=== PATIENT | female | born 1950 | race Caucasian/White ===

== ENCOUNTER 2019-05-23 12:20 | Emergency (ER) | payer OTHER ==
[2019-05-23 13:25] LABS: Absolute Lymphocytes (CBC) 1.4 K/uL (0.7-4.9); Basophils % 0.4 % (0-1.3); Hematocrit 34.7 % (36.0-45.0); Lymphocytes % 10.8 % (15.3-44.8); MPV 8.1 fL (7.6-11.3); RBC Red Blood Cell Count 4.03 M/uL (3.86-4.86)
[2019-05-23] MEDS ORDERED: MORPHINE 2 MG/ML SYR ONE (13:35)
[2019-05-23] MEDS ORDERED: ONDANSETRON 4 MG/2 ML VIAL ONE (13:35)
[2019-05-23 13:45] LABS: ALT/SGPT 25 U/L (12-78); AST/SGOT 18 U/L (15-37); Albumin 3.4 g/dL (3.4-5.0); Alkaline Phosphatase 123 U/L (45-117); BUN Blood Urea Nitrogen 26 mg/dL (7-18); Bicarbonate 30 mmol/L (21-32); Bilirubin Direct < 0.1 mg/dL (0-0.2); Bilirubin Total 0.3 mg/dL (0.2-1.0); Glucose Level 96 mg/dL (74-106); Lipase 92 U/L (73-393); Potassium 4.6 mmol/L (3.5-5.1); Protein, Total 7.4 g/dL (6.4-8.2); Sodium Level 133 mmol/L (136-145)
--- NOTE | 2019-05-23 14:07 | RAD REPORT ---
EXAM DESCRIPTION: CT - Chest Abdomen Pelvis W Cont - 05/23/2019 1:58 pm CLINICAL HISTORY: Chest and abdomen pain. right sided chest pain, right sided abdominal pain COMPARISON: No comparisons TECHNIQUE: Approximately 100 mL nonionic IV contrast was administered to the patient. All CT scans are performed using dose optimization technique as appropriate and may include automated exposure control or mA/KV adjustment according to patient size. FINDINGS: The lungs are clear.Cholecystectomy clips.No pleural or pericardial effusion.No intrathora cic adenopathy. The liver, spleen, pancreas, adrenal glands and kidneys are within normal limits. No bowel obstruction, free air, free fluid or abscess. Normal appendix. Significant diverticulosis is present involving the sigmoid colon. There is wall thickening and inflammatory changes present. No p eridiverticular abscess. No pathologic lymphadenopathy in the abdomen or pelvis. No worrisome osseous finding. IMPRESSION: Moderate acute sigmoid diverticulitis without abscess. .
[2019-05-23] MEDS ORDERED: CEFTRIAXONE/SWI 1gm 1 GM/10 ML SYR ONE (15:32)
[2019-05-23] MEDS ORDERED: metroNIDAZOLE 500 MG TABLET ONE (15:32)
[2019-05-23] MEDS ORDERED: CIPROFLOXACIN HCL 500 MG TAB ONE (15:32)
[2019-05-23 15:48] LABS: Urine Blood TRACE (NEG); Urine Glucose NEGATIVE (NEG); Urine Protein NEGATIVE (NEG); Urine Specific Gravity 1.015 (1.005-1.030)
--- NOTE | 2019-05-23 16:39 | ER ---
Nurse's Notes [facility] Name: Clarissa Padilla Age: 68 yrs Sex: Female : 1950 Arrival Date: 05/23/2019 Time: 12:24 Bed 14 Private MD: Diagnosis: Sigmoid Diverticulitis Presentation: 05/23 12:50 Presenting complaint: Patient states: RUQ pain that began yesterday, is continuous. ss Denies N/V/D. Transition of care: patient was not received from another setting of care. Onset of symptoms was May 22, 2019. Risk Assessment: Do you want to hurt yourself or someone else? Patient reports no desire to harm self or others. Initial Sepsis Screen: Does the patient meet any 2 criteria? HR > 90 bpm. Does the patient have a suspected source of infection? No. Patient's initial sepsis screen is negative. Care prior to arrival: None. 12:50 Method Of Arrival: Ambulatory ss 12:50 Acuity: EFREN 2 ss Historical: - Allergies: 12:53 PENICILLINS; ss - PMHx: 12:53 Hypertension; Depression; High Cholesterol; ss - PSHx: 12:53 Cholecystectomy; ss - Immunization history:: Adult Immunizations up to date. - Social history:: Smoking status: Patient/guardian denies using tobacco. - Ebola Screening: : Patient denies exposure to infectious person Patient denies travel to an Ebola-affected area in the 21 days before illness onset. Screenin:55 Abuse screen: Denies threats or abuse. Denies injuries from another. Nutritional ph screening: No deficits noted. Tuberculosis screening: No symptoms or risk factors identified. Fall Risk None identified. Assessment: 13:18 General: Appears in no apparent distress. uncomfortable, slender, well groomed, ph Behavior is cooperative, appropriate for age, anxious, Denies fever. Pain: Complains of pain in right upper quadrant Pain radiates to back. Neuro: Level of Consciousness is awake, alert, obeys commands, Oriented to person, place, time, situation. Cardiovascular: Denies chest pain, nausea, shortness of breath, Capillary refill < 3 seconds in bilateral fingers Patient's skin is warm and dry. Respiratory: Airway is patent Respiratory effort is even, unlabored, Respiratory pattern is regular, symmetrical. GI: Reports upper abdominal pain, Patient currently denies diarrhea, nausea, vomiting. : No signs and/or symptoms were reported regarding the genitourinary system. Derm: Skin is intact, is healthy with good turgor, Skin is pink, warm \T\ dry. Musculoskeletal: Circulation, motion, and sensation intact. Range of motion: intact in all extremities. 13:50 Reassessment: Patient appears in no apparent distress at this time. Patient and/or ph family updated on plan of care and expected duration. Pain level reassessed. Patient is alert, oriented x 3, equal unlabored respirations, skin warm/dry/pink. Pt taken to CT via wheelchair. 15:00 Reassessment: Patient appears in no apparent distress at this time. Patient and/or ph family updated on plan of care and expected duration. Pain level reassessed. Patient is alert, oriented x 3, equal unlabored respirations, skin warm/dry/pink. Pt reports that pain has improved after IV medications. 16:02 Reassessment: Patient appears in no apparent distress at this time. No changes from previously documented assessment. Patient and/or family updated on plan of care and expected duration. Pain level reassessed. Patient is alert, oriented x 3, equal unlabored respirations, skin warm/dry/pink. Vital Signs: 12:49 BP 157 / 67; Pulse 105; Resp 16; Temp 98.4(O); Pulse Ox 100% on R/A; Weight 58.51 kg; Height 5 ft. 2 in. (157.48 cm); Pain 8/10; 13:51 BP 117 / 86; Pulse 103; Resp 20; Pulse Ox 99% on R/A; ph 15:00 BP 110 / 76; Pulse 89; Resp 16; Pulse Ox 99% on R/A; ph 16:03 BP 115 / 78; Pulse 94; Resp 18; Temp 98.0; Pulse Ox 99% on R/A; ph 12:49 Body Mass Index 23.59 (58.51 kg, 157.48 cm) ED Course: 12:24 Patient arrived in ED. mr 12:44 Nolan Wood PA is PHCP. jmm 12:44 Johny Robledo MD is Attending Physician. [facility] 12:49 Arm band placed on right wrist. 12:52 Triage completed. 12:54 Cassy Flynn, RN is Primary Nurse. ph 12:55 Patient has correct armband on for positive identification. Placed in gown. Bed in low ph position. Call light in reach. Side rails up X 1. monitoring coordinator on. Pulse ox on. NIBP on. Door closed. Noise minimized. Warm blanket given. Head of bed elevated. 13:07 EKG done, by human service technician. reviewed by Nolan PINTO 3 13:10 Initial lab(s) drawn, by me, sent to lab. Inserted saline lock: 22 gauge in right ph antecubital area, using aseptic technique. Blood collected. 14:05 CT Chest, Abdomen, Pelvis - W/Contrast In Process Unspecified. EDMS 16:15 No provider procedures requiring assistance completed. IV discontinued, intact, ph bleeding controlled, No redness/swelling at site. Pressure dressing applied. Administered Medications: 13:40 Drug: Zofran 4 mg Route: IVP; Site: right antecubital; ph 16:17 Follow up: Response: No adverse reaction ph 13:42 Drug: morphine 2 mg {Note: RASS 1.} Route: IVP; Site: right antecubital; ph 14:00 Follow up: Response: No adverse reaction; Pain is decreased; RASS: Alert and Calm (0) ph 15:56 Drug: Cipro 500 mg Route: PO; ph 16:18 Follow up: Response: No adverse reaction ph 15:56 Drug: Flagyl 500 mg Route: PO; ph 16:19 Follow up: Response: No adverse reaction ph 15:56 Drug: Rocephin 1 grams Route: IV; Rate: calculated rate; Site: right antecubital; ph 16:19 Follow up: Response: No adverse reaction; IV Status: Completed infusion ph Outcome: 16:38 Discharge ordered by MD. carson 16:46 Patient left the ED. ph 16:46 Discharged to home ph 16:46 Condition: good 16:46 Discharge instructions given to patient, Instructed on discharge instructions, follow up and referral plans. medication usage, Demonstrated understanding of instructions, follow-up care, medications, Prescriptions given X 3. Signatures: Dispatcher [employer] EDMS Nolan Wood PA PA jmm Riverlily Marilyn Diamond RN RN Cassy Flynn RN RN Alexia Forte 3 Corrections: (The following items were deleted from the chart) 19:23 16:46 Patient left the ED. ph ph
--- NOTE | 2019-05-23 16:39 | EDPHYS ---
Physician Documentation [facility] Name: Clarissa Padilla Age: 68 yrs Sex: Female : 1950 Arrival Date: 05/23/2019 Time: 12:24 Bed 14 Private MD: ED Physician Johny Robledo HPI: 05/23 12:44 This 68 yrs old Female presents to ER via Ambulatory with complaints of Flank jmm Pain. 12:44 The patient complains of pain in the right flank. Onset: The symptoms/episode jmm began/occurred gradually, 2 day(s) ago. Modifying factors: The symptoms are alleviated by nothing. the symptoms are aggravated by nothing. This is a 68 year old female with a history of htn, depression, HLP that presents to the ED with complaints of right upper back pain which has now radiated to her abdomen. Patient states that she has had ongoing pain to her back. Denies vomiting, denies diarrhea. . Historical: - Allergies: 12:53 PENICILLINS; ss - PMHx: 12:53 Hypertension; Depression; High Cholesterol; ss - PSHx: 12:53 Cholecystectomy; ss - Immunization history:: Adult Immunizations up to date. - Social history:: Smoking status: Patient/guardian denies using tobacco. - Ebola Screening: : Patient denies exposure to infectious person Patient denies travel to an Ebola-affected area in the 21 days before illness onset. ROS: 12:44 Constitutional: Negative for fever, chills, and weight loss, Cardiovascular: Negative jmm for chest pain, palpitations, and edema, Respiratory: Negative for shortness of breath, cough, wheezing, and pleuritic chest pain. 12:44 Abdomen/GI: Positive for abdominal pain. 12:44 Back: Positive for pain with movement. 12:44 All other systems are negative. Exam: 12:44 Constitutional: This is a well developed, well nourished patient who is awake, alert, jmm and in no acute distress. Head/Face: atraumatic. Eyes: EOMI, no conjunctival erythema appreciated ENT: Moist Mucus Membranes Neck: Trachea midline, Supple Chest/axilla: Normal chest wall appearance and motion. Cardiovascular: Regular rate and rhythm. No edema appreciated Respiratory: Normal respirations, no respiratory distress appreciated 12:44 Abdomen/GI: Inspection: abdomen appears normal, Palpation: soft, mild abdominal tenderness, in all quadrants. 12:44 Back: vertebral tenderness, is not appreciated, mild right sided thoracic pain on palpation. 12:44 Musculoskeletal/extremity: ROM: intact in all extremities. 12:44 Skin: Appearance: Color: normal in color. 12:44 Neuro: Orientation: is normal, Mentation: is normal, Memory: is normal. 12:44 Psych: Behavior/mood is pleasant, cooperative. Vital Signs: 12:49 BP 157 / 67; Pulse 105; Resp 16; Temp 98.4(O); Pulse Ox 100% on R/A; Weight 58.51 kg; ss Height 5 ft. 2 in. (157.48 cm); Pain 8/10; 13:51 BP 117 / 86; Pulse 103; Resp 20; Pulse Ox 99% on R/A; ph 15:00 BP 110 / 76; Pulse 89; Resp 16; Pulse Ox 99% on R/A; ph 16:03 BP 115 / 78; Pulse 94; Resp 18; Temp 98.0; Pulse Ox 99% on R/A; ph 12:49 Body Mass Index 23.59 (58.51 kg, 157.48 cm) ss MDM: 12:44 Patient medically screened. manuelito 16:36 Data reviewed: vital signs, nurses notes. Counseling: I had a detailed discussion with alli the patient and/or guardian regarding: the historical points, exam findings, and any diagnostic results supporting the discharge/admit diagnosis, lab results, radiology results, the need for outpatient follow up, to return to the emergency department if symptoms worsen or persist or if there are any questions or concerns that arise at home. ED course: Patient states feeling much better. Patient is advised to follow up with pcp and otherwise given strict return precautions. Patient understood and agrees with the plan of care.. 05/23 12:55 Order name: Basic Metabolic Panel; Complete Time: 13:48 [facility] 05/23 12:55 Order name: CBC with Diff; Complete Time: 13:48 [facility] 05/23 12:55 Order name: Creatinine for Radiology; Complete Time: 13:48 [facility] 05/23 12:55 Order name: Hepatic Function; Complete Time: 13:48 [facility] 05/23 12:55 Order name: Lipase; Complete Time: 13:48 [facility] 05/23 13:02 Order name: Troponin (emerg Dept Use Only); Complete Time: 13:48 [facility] 05/23 13:02 Order name: CT Chest, Abdomen, Pelvis - W/Contrast; Complete Time: 14:16 [facility] 05/23 13:11 Order name: EKG Electrocardiogram; Complete Time: 13:27 [facility] 05/23 14:18 Order name: Urine Dipstick--Ancillary (enter results) 05/23 12:55 Order name: IV Saline Lock; Complete Time: 13:17 [facility] 05/23 12:55 Order name: Labs collected and sent; Complete Time: 13:17 [facility] 05/23 13:02 Order name: EKG - Nurse/Tech; Complete Time: 13:17 [facility] Administered Medications: 13:40 Drug: Zofran 4 mg Route: IVP; Site: right antecubital; ph 16:17 Follow up: Response: No adverse reaction ph 13:42 Drug: morphine 2 mg {Note: RASS 1.} Route: IVP; Site: right antecubital; ph 14:00 Follow up: Response: No adverse reaction; Pain is decreased; RASS: Alert and Calm (0) ph 15:56 Drug: Cipro 500 mg Route: PO; ph 16:18 Follow up: Response: No adverse reaction ph 15:56 Drug: Flagyl 500 mg Route: PO; ph 16:19 Follow up: Response: No adverse reaction ph 15:56 Drug: Rocephin 1 grams Route: IV; Rate: calculated rate; Site: right antecubital; ph 16:19 Follow up: Response: No adverse reaction; IV Status: Completed infusion ph Disposition: 05/24 06:44 Co-signature as Attending Physician, Johny Robledo MD I agree with the assessment and manuelito plan of care. Disposition: 05/23/19 16:38 Discharged to Home. Impression: Sigmoid Diverticulitis. - Condition is Stable. - Discharge Instructions: Diverticulitis. - Prescriptions for Cipro 500 mg Oral Tablet - take 1 tablet by ORAL route every 12 hours for 10 days; 20 tablet. Flagyl 500 mg Oral Tablet - take 1 tablet by ORAL route every 6 hours for 10 days; 40 tablet. Tylenol- Codeine #3 300-30 mg Oral Tablet - take 1 tablet by ORAL route every 6 hours As needed; 20 tablet. - Medication Reconciliation Form, Thank You Letter, Antibiotic Education, Prescription Opioid Use form. - Follow up: Private Physician; When: 2 - 3 days; Reason: Recheck today's complaints, Continuance of care, Re-evaluation by your physician. Signatures: Dispatcher [employer] EDJohny Torres MD MD cha Mickail, Joel, PA PA jmm Smirch, Shelby, MICHELLE RN Cassy Flynn RN RN ph Corrections: (The following items were deleted from the chart) 05/23 16:46 16:38 05/23/2019 16:38 Discharged to Home. Impression: Sigmoid Diverticulitis. ph Condition is Stable. Forms are Medication Reconciliation Form, Thank You Letter, Antibiotic Education, Prescription Opioid Use. Follow up: Private Physician; When: 2 - 3 days; Reason: Recheck today's complaints, Continuance of care, Re-evaluation by your physician. alli
[2019-05-23 16:56] VITALS: O2SAT 99
[2019-05-23 16:59] VITALS: BP 115/78; TEMP 98
--- NOTE | 2019-05-24 19:07 | EKG ---
Test Date: 2019-05-23 Test Time: 13:03:39 [employer] Counterperson: LIZETH MEASUREMENT RESULTS: Intervals: Rate: 103 MI: 132 QRSD: 88 QT: 316 QTc: 413 [place]: P: 37 MI: 132 QRS: 42 T: 69 INTERPRETIVE STATEMENTS: Sinus tachycardia Otherwise normal ECG No previous ECG available for comparison Electronically Signed On 05-23-19 17:50:46 CDT by Bravo Sim
== END 2019-05-23 16:46 | disposition home or self-care (01) ==
LOC: ER 12:20
DX: K57.32 Diverticulitis of large intestine without perforation or abscess without bleeding (principal); I10 Essential (primary) hypertension; Z88.0 Allergy status to penicillin
CPT/HCPCS: 96365; 93005; 85025; 80048; 36415; 80076; 81003; 84484; 83690; 71260; 74177; 96375; 99285; Q9967; J2270; J0696; J2405